=== PATIENT | female | born 1980 | race Caucasian/White ===

== ENCOUNTER 2020-12-06 23:31 | Emergency (ER) | payer SELFPAY ==
--- NOTE | 2020-12-07 00:05 | NUR ---
Patient was called to be triaged but was not present.
--- NOTE | 2020-12-07 00:10 | NUR ---
Patient was called to be traiged but was not present in the waiting room or outside of ER.
--- NOTE | 2020-12-07 00:15 | NUR ---
Patient was called for the 3rd time to be triaged but was not present. Patient was not traiged or seen by [facility].
== END 2020-12-07 00:15 | disposition left against medical advice (07) ==
LOC: ER 23:50
DX: Z53.21 Procedure and treatment not carried out due to patient leaving prior to being seen by health care provider (principal)